=== PATIENT | female | born 1955 | race African-American/Black ===

== ENCOUNTER 2025-04-20 10:04 | Outpatient (REF) | payer MEDICAID, SELFPAY ==
--- OUTSIDE RECORDS SUMMARY | 2025-04-20 09:00 | XMS_ITS | Encounter Summary ---
Author Organization [facility] Address [address] [place] [address] Care Team Providers Care Call Taker Name Role Phone Zaynab Edmondson DO Primary Care Provider Reason for Referral * Imaging (Routine) - Authorized Specialty Diagnoses / Procedures Referred By Belinda padilla Referred To Contact Radiology Diagnoses Postmenopausal Procedures BD DEXA Axial Zaynab Edmondson DO [address] [place] [address] Phone: tel: fax: [address] Phone: tel: fax: Referral ID Status Reason Start Date Expiration Date V isits Requested Visits Authorized [id number] Authorized 04/20/2025 04/20/2026 1 1 * Imaging (Routine) - Authorized Specialty Diagnoses / Procedures Referred By Belinda padilla Referred To Contact Radiology Diagnoses Breast cancer screening by mammogram Procedures BI Mammogram Screening Tomosynthesis Bilateral Zaynab Edmondson DO [address] [place] [address] Phone: tel: fax: [address] Phone: tel: fax: Referral ID Status Reason Start Date Expiration Date V isits Requested Visits Authorized [id number] Authorized 04/20/2025 04/20/2026 1 1 * Cardiology (Routine) - Closed Specialty Diagnoses / Procedures Referred By Contrach t Referred To Contact Diagnoses Type 2 diabetes mellitus without complication, without long-term current use of insulin (CMS/HCC) Essential hypertension Procedures ECG 12 lead Zaynab Edmondson DO [address] [place] [address] Phone: tel: fax: Referral ID Status Reason Start Date Expiration Date Visits Re quested Visits Authorized [id number] Closed 04/20/2025 04/20/2026 1 1 Encounter Details Date Type Department Care Team (Late st Contact Info) Description 04/20/2025 9:00 AM EDT Office Visit [facility] MEDICINE [address] [place] [address] Zaynab Edmondson DO [address] [place], [place] [phone] Routine history and physical examination of adult (Primary Dx); Type 2 diabetes mellitus without complication, without long-term current use of insulin (CMS/HCC); Essential hypertension; Other hyperlipidemia; History of CVA (cerebrovascular accident); BMI 31.0-31.9,adult; Dietary counseling; Exercise counseling; Breast cancer screening by mammogram; Postmenopausal; Screening for colon cancer Social History Tobacco Use Types Packs/Day Years Used Date Smoking Tobacco: Never Passive Smoke Exposure: Never Smokeless Tobacco: Never Tobacco Cessation:Counseling Given: Not Answered Alcohol Use Standard Drinks/Week Comments Never 0 (1 standard drink = 0.6 oz pur e alcohol) Depression Answer Date Recorded Patient Health Questionnaire-9 Score 1 04/20/2025 Patient Health Questionnaire-9 Score 1 04/20/2025 Last PHQ-9: Questionnaire Data Not on file 0 04/20/2025 Housing Stability Answer Date Recorded What is your housing situation today? I have arturo girard 04/12/[address] you li ve. Do you have problems with any of the following? None of the above 04/12/2025 Food Insecurity Answer Date Recorded Within the past 12 months, y ou worried that your food would run out before you got money to buy more: Never True 04/12/2025 Within the past 12 months,th e food you bought just didn't last and you didn't have enough money to get more: Never True Transportation Answer Date Recorded In the past 12 months, has l ack of transportation kept you from medical appts, meetings, work or from getting things needed for daily living? No 04/12/2025 Utilities Answer Date Recorded In the past 12 months, has t he [employer], gas, oil or water company threatened to shut off services in your home? No 04/12/2025 Depression Answer Date Recorded Patient Health Questionnaire-2 Score 0 04/20/2025 Internet Access Answer Date Recorded Internet Access Q1 Yes 04/12/2025 Internet Access Q2 Not on file 04/12/2025 Comments Unknown Sex and Gender Information Value Date Recorded Sex Assigned at Female 02/24/2025 10:20 AM EDT Legal Sex Female 10:17 AM EDT Gender Identity Female 02/24/2025 10:20 AM EDT Sexual Orientation Straight 02/24/2025 10 :20 AM EDT documented as of this encounter Last Filed Vital Signs Vital Sign Reading Time Taken Comments Blood Pressure 168/78 04/20/2025 9:52 AM EDT Pulse 76 04/20/2025 9:11 AM EDT Temperature 36.6 C (97.8 F) 04/20/2025 9:11 AM EDT Respiratory Rate 19 04/20/2025 9:11 AM EDT Oxygen Saturation - - Inhaled Oxygen Concentration - - Weight 80.1 kg (176 lb 8 oz) 04/20/2025 9:11 AM EDT Height 158.5 cm (5' 2.4 ) 04/20/2025 9:11 AM EDT Body Mass Index 31.87 04/20/2025 9:11 AM EDT documented in this encounter Functional Status * Over the past 2 weeks, how often have you been bothered by any of the following problems? Question Answer Date of Assessment Author Patient Health Questionnaire-2 Score 0 03/29 9:56 AM EDT Radha Gill MA * Little interest or pleasure in doing things Answer Date of Assessment Author Not at all 04/20/2025 9:56 AM EDT Jocelyn Gill MA * Feeling down, depressed, or hopeless Answer Date of Assessment Author Not at all 04/20/2025 9:56 AM EDT Jocelyn Gill MA * Trouble falling or staying asleep, or sleeping too much Answer Date of Assessment Author Not at all 04/20/2025 9:56 AM EDT Jocelyn Gill MA * Feeling tired or having little energy Answer Date of Assessment Author Not at all 04/20/2025 9:56 AM EDT Jocelyn Gill MA * Poor appetite or overeating Answer Date of Assessment Author Not at all 04/20/2025 9:56 AM EDT Jocelyn Gill MA * Feeling bad about yourself - or that you are a failure or have let yourself or your family down Answer Date of Assessment Author Not at all 04/20/2025 9:56 AM EDT Jocelyn Gill MA * Trouble concentrating on things, such as reading the newspaper or watching television Answer Date of Assessment Author Several days 04/20/2025 9:56 AM EDT Jocelyn Gill MA * Moving or speaking so slowly that other people could have noticed? Or the opposite - being so fidgety or restless that you have been moving around a lot more than usual. Answer Date of Assessment Author Not at all 04/20/2025 9:56 AM EDT Jocelyn Gill MA * Thoughts that you would be better off or hurting yourself in some way Answer Date of Assessment Author Not at all 04/20/2025 9:56 AM EDT Jocelyn Gill MA * Patient Health Questionnaire-9 Score Answer Date of Assessment Author 1 04/20/2025 9:56 AM EDT Jocelyn Gill MA * How difficult have these problems made it for you to do your work, take care of things at home, or get along with other people? Answer Date of Assessment Author Not difficult at all 04/20/2025 9:56 AM EDT Radha Gill MA * Over the last 2 weeks, how often have you been bothered by any of the following problems? Question Answer Date of Assessment Author Feeling nervous, anxious, or on edge 0 03/29 9:57 AM EDT Radha Gill MA Not being able to stop or co ntrol worrying 0 04/20/2025 9:57 AM EDT Radha Gill MA Worrying too much about diff erent things 1 04/20/2025 9:57 AM EDT Radha Gill MA Trouble relaxing 0 04/20/2025 9:57 AM EDT Radha Christine MA Being so restless that it is hard to sit still 0 04/20/2025 9:57 AM EDT Radha Gill MA Becoming easily annoyed or irritable 3 03/29 9:57 AM EDT Radha Gill MA Feeling afraid as if somethi ng awful might happen 0 04/20/2025 9:57 AM EDT Radha Gill MA RO-7 Total Score 4 04/20/2025 9:57 AM EDT Radha Gill MA documented as of this encounter Progress Notes * Zaynab Edmondson, - 04/20/2025 9:00 AM EDT HIEU Crisostomo Janelle Byrne is a 69 y.o. female who presents for New Pt Visit to establish carewith new PCP. HPI She has not taken her BP meds this morning. She forgot before she left the house. She says that she checks her BP every morning, readings usually 140s/60-70s, today 140/60. She checks her sugars every morning, fastings 160s-220s She thought that glipizide was only once a day and she's only taking the glipizide with breakfast. She has appointment with optho in May. She is scheduled for appointment with speech therapy on of next . She had a mammo and pap last year in [place] and says that everything was good. She doesn't have copy of the results. She says that her pap smears have always been good. She has never had a colonoscopy and doesn't want one. She thinks that she might have copy of vaccines given in [place] at home. She lives with her and 4 dtrs and granddtr. She and her have been together > 30 years, 28 years. 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 She has never smoked cigarettes. No alcohol. No drug use. Review of Systems Constitutional: Negative for activity change, appetite change, chills, fever and unexpected weight change. Eyes: Negative for visual disturbance. Respiratory: Negative for cough and shortness of breath. Cardiovascular: Negative for chest pain, palpitations and leg swelling. Gastrointestinal: Negative for abdominal pain, diarrhea, nausea and vomiting. Neurological: Negative for dizziness, weakness and headaches. Patient Active Problem List Diagnosis Type 2 diabetes mellitus (CMS/HCC) Essential hypertension Hyperlipidemia History of CVA (cerebrovascular accident) No Known Allergies History reviewed. No pertinent past medical history. Past Surgical History: Procedure Laterality Date TUBAL LIGATION Family History Problem Relation Name Age of Onset Cancer Mother Prostate cancer Father Diabetes Father Hypertension Father Diabetes Sister Stroke Sister Thyroid disease Daughter OBJECTIVE Visit Vitals BP (!) 168/78 (BP Location: Left arm, Patient Position: Sitting, BP Cuff Size: Large adult) Pulse 76 Temp 97.8 ??F (36.6 ??C) (Oral) Resp 19 Ht 5' 2.4 (1.585 m) Wt 176 lb 8 oz (80.1 kg) BMI 31.87 kg/m?? Smoking Status Never BSA 1.88 m?? Physical Exam Constitutional: General: She is not in acute distress. Appearance: Normal appearance. She is obese. HENT: Right Ear: Tympanic membrane, ear canal and external ear normal. Left Ear: Tympanic membrane, ear canal and external ear normal. Mouth/Throat: Pharynx: Oropharynx is clear. Eyes: Extraocular Movements: Extraocular movements intact. Conjunctiva/sclera: Conjunctivae normal. Pupils: Pupils are equal, round, and reactive to light. Cardiovascular: Rate and Rhythm: Normal rate and regular rhythm. Heart sounds: Normal heart sounds. No murmur heard. Pulmonary: Effort: Pulmonary effort is normal. Breath sounds: Normal breath sounds. No wheezing or rhonchi. Abdominal: General: Bowel sounds are normal. Palpations: Abdomen is soft. There is no mass. Tenderness: There is no abdominal tenderness. Musculoskeletal: General: Normal range of motion. Cervical back: Normal range of motion and neck supple. No tenderness. Lymphadenopathy: Cervical: No cervical adenopathy. Skin: Findings: No rash. Neurological: General: No focal deficit present. Mental Status: She is alert and oriented to person, place, and time. Cranial Nerves: No cranial nerve deficit. Motor: No weakness. Gait: Gait normal. Psychiatric: Mood and Affect: Mood normal. Office Visit on 04/20/2025 Component Date Value Ref Range Status Glucose Blood, POC 04/20/2025 258 (A) 60 - 200 mg/dL Final Random QC Media Lot # 04/20/2025 [id number] Final Lot# Expiration Date 04/20/2025 [id number] Final Hemoglobin A1C 04/20/2025 8.8 (A) 4.0 - 5.7 % Final QC Media Lot # 04/20/2025 [id number] Final Lot# Expiration Date 04/20/2025 [id number] Final Assessment/Plan Diagnoses and all orders for this visit: Routine history and physical examination of adult -she declines flu vaccine -she declines PCV 20 -she will bring vaccine record next visit for review -schedule pap next visit -referred for mammo -referred for DEXA -she declines colonoscopy, referred for Cologuard -STI/HIV screening Type 2 diabetes mellitus without complication, without long-term current use of insulin ([facility]) A1c not at goal -cont metformin BID -start glipizide BID with meals -she declines additional med mgmt at this time -encouraged fasting and PP BS monitoring -keep optho evaluation as scheduled -foot exam next visit - POCT Glucose - POCT Hgb A1c - ECG 12 lead Essential hypertension BP elevated with reported nml home BP readings, asymptomatic -cont losrtan and norvasc daily -advised keep BP log and bring to next visit for review, new BP cuff sent -check basic labs as not yet done -referred for EKG -optho as above -advised go to ED if severe MIRANDA, CP or vision changes - ECG 12 lead Other hyperlipidemia -cont crestor nightly -check lipids prior to next visit as not yet done History of CVA (cerebrovascular accident) -cont crestor and aspirin daily -d/w pt and dtrs importance of optimal BP and BS control -keep speech evaluation as scheduled BMI 31.0-31.9,adult Dietary counseling Exercise counseling -encouraged [id number] Breast cancer screening by mammogram - BI Mammogram Screening Tomosynthesis Bilateral; Future Postmenopausal - BD DEXA Axial; Future Screening for colon cancer - Cologuard?? colon cancer screening --Follow-up with me in 3 mos or sooner prn-- Current Outpatient Medications: Alcohol Swabs 70 % pads, Use to test blood sugar 2 times daily, Disp: 100 each, Rfl: 11 amLODIPine (Norvasc) 10 MG tablet, Take 1 tablet (10 mg) by mouth Once per day., Disp: 90 tablet, Rfl: 1 aspirin 81 MG EC tablet, Take 1 tablet (81 mg) by mouth Once per day., Disp: 90 tablet, Rfl: 1 Blood Glucose Monitoring Suppl (FreeStyle Nunnelly Lite) w/Device kit, Use to test blood sugar 2 times daily, Disp: 1 kit, Rfl: 0 FREESTYLE LITE test strip, Use to test blood sugar 2 times daily, Disp: 100 each, Rfl: 11 glipiZIDE (Glucotrol) 10 MG tablet, Take 1 tablet (10 mg) by mouth before breakfast and before evening meal., Disp: 180 tablet, Rfl: 1 Lancets misc, Use to test blood sugar 2 times daily, Disp: 100 each, Rfl: 11 losartan (Cozaar) 100 MG tablet, Take 1 tablet (100 mg) by mouth Once per day., Disp: 90 tablet, Rfl: 1 metFORMIN (Glucophage) 1000 MG tablet, Take 1 tablet (1,000 mg) by mouth with breakfast and with evening meal., Disp: 180 tablet, Rfl: 1 rosuvastatin (Crestor) 10 MG tablet, Take 1 tablet (10 mg) by mouth at bedtime., Disp: 90 tablet, Rfl: 1 Blood Pressure kit, 1 each 1 (one) time per week., Disp: 1 kit, Rfl: 0 documented in this encounter Plan of Treatment Upcoming Encounters Date Type Department Care Team (Late st Contact Info) Description 06/20/2025 9:00 AM EST Office Visit [facility] OPTOMETRY [address] [place], [place] [phone] Makayla Felton, OD [address] [place] [address] Scheduled Orders Name Type Priority Associated Diagnoses Orde r Schedule ECG 12 lead ECG Routine Type 2 diabetes mellitus without complication, without long-term current use of insulin ([facility]) Essential hypertension Ordered: 04/20/2025 BI Mammogram Screening Tomosynthesis Bilateral Imaging Routine Breast cancer screening by mammogram Expected: 04/20/2025, Expires: 06/20/2026 Cologuard colon cancer screening Lab Routine Screening for colon cancer Ordered: 04/20/2025 BD DEXA Axial Imaging Routine Postmenopausal Expected: 04/20/2025, Expires: 04/20/2026 documented as of this encounter Procedures Procedure Name Priority Date/Time Associated Diagnosis Comments POCT GLYCATED HEMOGLOBIN, TOTAL Routine 04/20/2025 9:17 AM EDT Type 2 diabetes mellitus without complication, without long-term current use of insulin ([facility]) POCT GLUCOSE Routine 04/20/2025 9:16 AM EDT Type 2 diabetes mellitus without complication, without long-term current use of insulin ([facility]) documented in this encounter Results * (ABNORMAL) POCT Hgb A1c (04/20/2025 9:17 AM EDT) Hemoglobin A1C 8.8(A) 4.0 - 5.7 % QC Media Lot # [id number] Lot# Expiration Date [id number] Blood 04/20/2025 9:17 AM EDT Zaynab Edmondson DO POINT OF CARE TEST ENTER/NATALI T ORDERABLES Final Result * (ABNORMAL) POCT Glucose (04/20/2025 9:16 AM EDT) Glucose Blood, POC 258(A) 60 - 200 mg/dL Comment:Random QC Media Lot # [id number] Lot# Expiration Date ,[id number] Blood Capillary blood specimen / Unknown 04/20/2025 9:16 AM EDT Zaynab Edmondson DO POINT OF CARE TEST ENTER/NATALI T ORDERABLES Final Result documented in this encounter Visit Diagnoses Diagnosis Routine history and physical examination of adult- Primary Type 2 diabetes mellitus without complication, without long-term current use of insulin (CMS/HCC) Essential hypertension Unspecified essential hypertension Other hyperlipidemia History of CVA (cerebrovascular accident) Transient ischemic attack (TIA), and cerebral infarction without residual deficits BMI 31.0-31.9,adult Dietary counseling Dietary surveillance and counseling Exercise counseling Breast cancer screening by mammogram Postmenopausal Asymptomatic postmenopausal status (age-related) (natural) Screening for colon cancer Special screening for malignant neoplasms, colon documented in this encounter Additional Health Concerns Assessment Noted Time PHQ-9 Depression Total Score: 1 04/20/20 25 9:56 AM EDT documented as of this encounter Care Teams Call Taker Relationship Specialty Start Date End Date Zaynab Edmondson DO [address] [place] [id number] PCP - General Family Medicine 04/20/25 documented as of this encounter
[2025-04-20 11:46] LABS: Hematocrit 41.8 % (37.0-47.0); Hemoglobin 14.1 g/dl (12.0-16.0); Mean Corpuscular HGB Conc 33.7 g/dl (31.0-35.0); Mean Corpuscular Hemoglobin 28.5 pg (27.0-33.0); Mean Corpuscular Volume 84.6 fL (80.0-98.0); NRBC Abs Auto 0.000 X10*3/uL (0.0-0.012); NRBC Pct Auto 0.0 /100WBC (0.0-0.2); Platelet Count 219 X10*3/uL (160-400); Red Blood Count 4.94 X10*6/uL (4.20-5.50); White Blood Count 5.6 X10*3/uL (4.8-10.8)
--- OUTSIDE RECORDS SUMMARY | 2025-04-20 12:20 | XMS_ITS | Encounter Summary ---
Author Organization [email or web address] Address [address] [place] [address] Care Team Providers Care Data Entry Machine Operator Name Role Phone Unavailable Primary Care Provider Unavailabl e Reason for Visit * Reason Onset Date Comments Chart Prep 04/19/2025 Encounter Details Date Type Department Care Team (Late st Contact Info) Description 04/19/2025 Telephone [facility] MEDICINE [address] [place], [place] [phone] Zaynab Edmondson DO [address] [place], [place] [phone] Chart Prep Social History Tobacco Use Types Packs/Day Years Used Date Smoking Tobacco: Never Smokeless Tobacco: Never Depression Answer Date Recorded Patient Health Questionnaire-9 [...] the past 12 months, has t he electric, gas, oil or water company threatened to [...] AM EDT documented as of this encounter Miscellaneous Notes * Telephone Encounter - Lauren Orosco MA - 04/19/2025 8:33 AM EDT Chart Prep Labs: not done Images: not applicable Referrals: [facility] Vision-06/20/25, pending appointment [facility] Speech Vaccines due: Covid, Flu, PCV20, Tdap, and Zoster Screenings: colonoscopy, mammogram, and foot exam Overdue care gaps: A1c, Glucose, SBIRT, PHQ-9, and RO-7 documented in this encounter Plan of Treatment Upcoming Encounters Date Type Department Care Team ([facility] st Contact Info) Description 06/20/2025 9:00 AM EST Office Visit [facility] OPTOMETRY [address] [place] [address] Makayla Felton, OD [address] [place] [address] documented as of this encounter Visit Diagnoses Not on filedocumented in this encounter
--- OUTSIDE RECORDS SUMMARY | 2025-04-20 12:20 | XMS_ITS | Clinical Summary ---
Author Organization [email or web address] Address [address] [place] [address] Care Team Providers Care Staff Development Educator Name Role Phone Tess Edmondsonnifer Primary Care Provider [phone] Allergies No known active allergies Medications FREESTYLE LITE test strip Use to test blood sugar 2 times daily 100 each 11 5 02/25/20 26 Active Lancets misc Use to test blood sugar 2 times daily 100 each 5 Active Alcohol Swabs 70 % pads Use to test blood sugar 2 times daily 100 each 11 5 Active Blood Glucose Monitoring Suppl (FreeStyle Manderson Lite) w/Device kit Use to test blood sugar 2 times daily 1 kit 5 Active losartan (Cozaar) 100 MG tablet Take 1 tablet (100 mg) by mouth Once per day. 90 tablet 1 5 02/25/20 26 Active amLODIPine (Norvasc) 10 MG tablet Take 1 tablet (10 mg) by mouth Once per day. 90 tablet 1 5 02/25/20 26 Active metFORMIN (Glucophage) 1000 MG tablet Take 1 tablet (1,000 mg) by mouth with breakfast and with evening meal. 180 tablet 1 5 02/25/20 26 Active glipiZIDE (Glucotrol) 10 MG tablet Take 1 tablet (10 mg) by mouth before breakfast and before evening meal. 180 tablet 1 5 02/25/20 26 Active rosuvastatin (Crestor) 10 MG tablet Take 1 tablet (10 mg) by mouth at bedtime. 90 tablet 1 5 02/25/20 26 Active aspirin 81 MG EC tablet Take 1 tablet (81 mg) by mouth Once per day. 90 tablet 1 5 02/25/20 26 Active Blood Pressure kit 1 each 1 (one) time per week. 1 kit 5 Active Active Problems Problem Noted Date Diagnosed Date BMI 31.0-31.9,adult 04/20/2025 Type 2 diabetes mellitus 02/24/2025 Essential hypertension 02/24/2025 Hyperlipidemia 02/24/2025 History of CVA (cerebrovascular accident) 2024 Encounters Date Type Department Care Team Description 04/20/2025 9:00 AM EDT Office Visit [facility] [address] [place] [id number] Zaynab Edmondson DO Routine history and physical examination of adult (Primary Dx); Type 2 diabetes mellitus without complication, without long-term current use of insulin (CMS/HCC); Essential hypertension; Other hyperlipidemia; History of CVA (cerebrovascular accident); BMI 31.0-31.9,adult; Dietary counseling; Exercise counseling; Breast cancer screening by mammogram; Postmenopausal; Screening for colon cancer 04/20/2025 Travel 04/19/2025 Telephone [facility] [address] [place] [phone] Zaynab Edmondson DO Chart Prep 04/12/2025 Patient Outreach [address] [address] Fanny Waggoner Pre-visit Planning ((Unable to reach for PVP screening, LVM) to be completed in office ) 02/24/2025 11:00 AM EDT Office Visit [facility] [address] [place] [phone] Zaynab Edmondson DO Type 2 diabetes mellitus without complication, without long-term current use of insulin (CMS/HCC) (Primary Dx); Essential hypertension; Other hyperlipidemia; History of CVA (cerebrovascular accident) 02/24/2025 Travel from Last 3 Months Family History Medical History Relation Name Comments Thyroid disease Daughter Diabetes Father Hypertension Father Prostate cancer Father Cancer Mother Diabetes Sister Stroke Sister Relation Name Status Comments Daughter Father Mother Sister Social History Tobacco Use Types Packs/Day Years [...] Orientation Straight 02/24/2025 10 :20 AM EDT Last Filed Vital Signs Vital Sign Reading Time Taken Comments Blood Pressure 168/78 04/20/2025 9:52 AM EDT Pulse 76 04/20/2025 9:11 AM EDT Temperature 36.6 C (97.8 F) 04/20/2025 9:11 AM EDT Respiratory Rate 19 04/20/2025 9:11 AM EDT Oxygen Saturation 100% 02/24/2025 10:40 AM EDT Inhaled Oxygen Concentration - - Weight 80.1 kg (176 lb 8 oz) 04/20/2025 9:11 AM EDT Height 158.5 cm (5' 2.4 ) 04/20/2025 9:11 AM EDT Body Mass Index 31.87 04/20/2025 9:11 AM EDT Plan of Treatment Upcoming Encounters Date Type Department Care Team (Late st Contact Info) Description 06/20/2025 9:00 AM EST Office Visit [facility] OPTOMETRY [address] [place] [address] Makayla Felton, OD [address] [place] [address] Health Maintenance Due Date Last Done Comments CT Colonography 1956 Colonoscopy 1956 Colorectal Cancer Screening 1956 FIT DNA/Cologuard 1956 FIT 1956 FOBT 1956 Lipid Panel 1956 Sigmoidoscopy 1956 Diabetes: Foot Exam 1966 Eye Exam 1966 Hepatitis C Screening 1974 DTaP/Tdap/Td Vaccines (1 - Tdap) 12/17/1975 Diabetes: Urine Protein Screening 12/17/1975 Pneumococcal Vaccine: 50+ Years (1 of 2 - PCV) 12/17/1975 Mammogram 1996 Zoster Vaccines (1 of 2) 2006 COVID-19 Vaccine (1 - 2023-2 5 season) 2025 Influenza Vaccine (#1) 2025 Diabetes: Hemoglobin A1C 07/20/2025 04/20/2025 SDOH Screening 04/12/2026 04/12/2025 Alcohol/Substance Use Screening 04/20/2026 04/20/2025 Depression Screening 04/20/2026 04/20/2025, 04/20/2025 Tobacco Screening 04/20/2026 04/20/2025 RSV Patients and Patients Aged 60 years or older (1 - 1-dose 75+ series) 12/17/2031 HIB Vaccines Aged Out No longer eligi ble based on patient's age to complete this topic HPV Vaccines Aged Out No longer eligi ble based on patient's age to complete this topic Hepatitis A Vaccines Aged Out No long er eligible based on patient's age to complete this topic Hepatitis B Vaccines Aged Out No long er eligible based on patient's age to complete this topic IPV Vaccines Aged Out No longer eligi ble based on patient's age to complete this topic Meningococcal B Vaccine Aged Out No l onger eligible based on patient's age to complete this topic Meningococcal Vaccine Aged Out No gopi cris eligible based on patient's age to complete this topic RSV under 20 months Aged Out No longe r eligible based on patient's age to complete this topic Rotavirus Vaccines Aged Out No longer eligible based on patient's age to complete this topic Procedures Procedure Name Priority Date/Time Associated Diagnosis Comments CBC Routine 04/20/2025 10:18 AM EDT Type 2 diabetes mellitus without complication, without long-term current use of insulin ([facility]) POCT GLYCATED HEMOGLOBIN, TOTAL Routine 04/20/2025 9:17 AM EDT Type 2 diabetes mellitus without complication, without long-term current use of insulin ([facility]) POCT GLUCOSE Routine 04/20/2025 9:16 AM EDT Type 2 diabetes mellitus without complication, without long-term current use of insulin ([facility]) from Last 3 Months Results * CBC (04/20/2025 10:18 AM EDT) White Blood Count 5.6 4.8 - 10.8 X10*3/uL [facility] Red Blood Count 4.94 4.20 - 5.50 X10*6/uL [facility] Hemoglobin 14.1 12.0 - 16.0 g/dl [facility] Hematocrit 41.8 37.0 - 47.0 % [facility] Mean Corpuscular Volume 84.6 80.0 - 98.0 fL [facility] Mean Corpuscular Hemoglobin 28.5 27.0 - 33.0 pg [facility] Mean Corpuscular HGB Conc 33.7 31.0 - 35.0 g/dl [facility] Red Cell Distribution Width 13.2 11.0 - 16.0 % [facility] Platelet Count 219 160 - 400 X10*3/uL [facility] Mean Platelet Volume 10.0 9.4 - 12.3 fL [facility] NRBC Pct Auto 0.0 0.0 - 0.2 /100WBC [facility] NRBC Abs Auto 0.000 0.0 - 0.012 X10*3/uL [facility] Blood Venous blood specimen / Unknown 04/20/2025 10:18 AM EDT 04/20/2025 11:21 AM EDT Zaynab Edmondson DO LAB BLOOD ORDERABLES Final R esult [facility] [address] [place] [address] [phone] * (ABNORMAL) POCT Hgb A1c (04/20/2025 9:17 AM EDT) Hemoglobin A1C 8.8(A) 4.0 - 5.7 % QC Media Lot # [id number] Lot# Expiration Date ,[id number] Blood 04/20/2025 9:17 AM EDT Zaynab Edmondson DO POINT OF CARE TEST ENTER/NATALI T ORDERABLES Final Result * (ABNORMAL) POCT Glucose (04/20/2025 9:16 AM EDT) Glucose Blood, POC 258(A) 60 - 200 mg/dL Comment:Random QC Media Lot # [id number] Lot# Expiration Date [id number] Blood Capillary blood specimen / Unknown 04/20/2025 9:16 AM EDT Zaynab Edmondson DO POINT OF CARE TEST ENTER/NATALI T ORDERABLES Final Result from Last 3 Months Insurance [facility] Care Teams Staff Development Educator Relationship Specialty Start Date End Date Zaynab Edmondson DO [address] [place] [address] PCP - General Family Medicine 04/20/25
--- OUTSIDE RECORDS SUMMARY | 2025-04-20 12:20 | XMS_ITS | Encounter Summary ---
Author Organization [employer] Address [address] [place] [address] Care Team Providers Care Eye Specialist Name Role Phone SandyZaynab heredia Primary Care Provider Encounter Details Date Type Department Care Team (Latest Contact Info) Description 04/20/2025 Travel Social History Tobacco Use Types Packs/Day Years Used Date Smoking Tobacco: Never Passive Smoke Exposure: Never Smokeless Tobacco: Never Alcohol Use Standard Drinks/Week Comments Never 0 [...] AM EDT documented as of this encounter Functional Status * Over the [...] Author Not at all 04/20/2025 9:56 AM LOT Jocelyn Gill MA * Patient Health Questionnaire-9 [...] RO-7 Total Score 4 04/20/2025 9:57 AM LOT Radha Gill MA documented as of this encounter Plan of Treatment Upcoming Encounters Date Type Department Care Team (Late st Contact Info) Description 06/20/2025 9:00 AM EST Office Visit [facility] OPTOMETRY [address] [place] [address] Makayla Felton, OD [address] [place] [address] documented as of this encounter Visit Diagnoses Not on filedocumented in this encounter Additional Health Concerns Assessment Noted Time PHQ-9 Depression Total Score: 1 04/20/20 9:56 AM EDT documented as of this encounter Care Teams Eye Specialist Relationship Specialty Start Date End Date Zaynab Edmondson DO [address] [place] [address] PCP - General Family Medicine 04/20/25 documented as of this encounter
[2025-04-20 12:28] LABS: Alanine Aminotransferase 19 U/L (0-31); Albumin Level 4.6 g/dL (3.5-5.0); Alkaline Phosphatase 76 U/L (39-117); Anion Gap 14 (12-20); Aspartate Amino Transferase 27 U/L (5-31); Blood Urea Nitrogen 12 mg/dL (9-16); Calcium 9.9 mg/dL (8.4-10.2); Carbon Dioxide 28 mmol/L (22-29); Chloride 102 mmol/L (96-108); Cholesterol 183 mg/dL (<200); Estimated Glomerular Filt Rate > 60; Free T4 (Free Thyroxine) 0.80 ng/dL (0.71-1.85); HDL Cholesterol 66 mg/dL (>40); Potassium 4.6 mmol/L (3.3-5.1); Sodium 139 mmol/L (135-145); Thyroid Stimulating Hormone 6.88 uIU/mL (0.32-4.0); Total Protein 7.8 g/dL (6.5-8.0); Triglycerides 108 mg/dL (<150)
[2025-04-20 13:13] LABS: Microalbum/Creatinine Ratio Ur 76.1 ug/mg cr (<30)
[2025-04-21 04:16] LABS: HBS Num1 > 1000.00 mIU/mL (0-7.99); HBc Num1 2.11 S/CO (0.00-0.79); HBsAGNum1 0.29 S/CO (0.00-0.99); HIV Num 1 0.04 S/CO (0.00-0.99); Hepatitis B Surface Antigen Negative (Negative); ~HepC Num1 0.11 S/CO (0.00-0.79); ~Hepatitis B Surface Antibody REACTIVE (Nonreactive); ~Hepatitis C Antibody Nonreactive (Nonreactive)
[2025-04-21 04:59] LABS: HBc Num2 1.95 S/CO; HBc Num3 1.98 S/CO
[2025-04-22 08:44] LABS: ~Hepatitis A Antibody IgG 8.95 S/CO (0.00-0.99)
[2025-04-22 22:33] LABS: TS Negative Control Passed; TS Panel A 0; TS Panel B 0; TS Positive Control Passed; TSpotTB Negative (Negative)
== END 2025-04-20 10:05 | disposition home or self-care (01) ==
LOC: HO.HHCL 10:04
PROVIDERS: PCP Family Medicine; Visit Provider Family Medicine
DX: Z11.4 Encounter for screening for human immunodeficiency virus [HIV] (principal); Z11.59 Encounter for screening for other viral diseases; Z11.1 Encounter for screening for respiratory tuberculosis; E11.9 Type 2 diabetes mellitus without complications
CPT/HCPCS: 36415; 80048; 80061; 80076; 82043; 82306; 82570; 83036; 84439; 84443; 85027; 86481; 86592; 86704; 86706; 86708; 86803; 87340; 87389

== ENCOUNTER 2025-05-11 12:30 | Outpatient (RCR) | payer MEDICAID, SELFPAY ==
--- NOTE | 2025-05-12 12:13 | MHC.SP.ADU ---
Referring provider: Zaynab Edmondson DO Reason for Referral: Patient s/p CVA two years ago Type of Treatment: 41502 Evaluation Speech Sound Production WITH Language Date of Plan of Treatment: 05/11/25 Onset of Symptoms/Illness: 02/08/23 Date Treatment Started: 05/11/25 Medical Diagnosis: Z86.73 History of CVA (cerebrovascular accident) Primary Speech Language Diagnosis: R47.01 Aphasia Secondary Speech Language Diagnosis: R47.1 Dysarthria History Andressa Byrne is a 69 year old female referred for a speech evaluation by her primary care provider, Zaynab Edmondson DO, from [facility]. She was accompanied to this evaluation, by her daughter and granddaughter. Andressa?s main concern is her slurred speech as a residual effect of ischemic stroke. She reports having a stroke in [place] in January of 2023. She was sent home from the hospital after 3 days and underwent ?physiotherapy? on her side due to left sided facial weakness. She tried to establish speech therapy services there, however, the waitlists were too long and she was never seen for an evaluation. She moved to the [facility] over one year ago. Andressa reports new onset word retrieval difficulty 3-4 months ago. She says she did not go to the hospital for a work up, but did go to her primary care provider, after which a referral for speech therapy was made. Patient says that she has a harder time getting her words out since then. She also reports the following concerns: difficulty reading/writing, maintaining topic of conversation, oral motor weakness, expressing thoughts, being understood by others, and fluent speech. Andressa denies any childhood history of speech, language, or hearing difficulties. She completed some high school, had no accommodations or special education. Andressa reports medical history of hypertension and diabetes. Andressa wears glasses, but denies using any other assistive devices. She is not currently employed and enjoys being involved at [employer]. Andressa is and lives in a private residence. Medical History: Stroke Assessment Speech Production: Aphasic: Nonfluent Dysarthric Garbled Slow Clinical Impression: Impaired Observations: Andressa?s speech was mildly slow in rate and moderately garbled. Andressa?s SMR?s and AMR?s were slow, with precise placement and production of /k/, but limited labial movement on the left side for /p/ and distortion of the /t/ sound. With oral neuromotor examination, Andressa displayed gross facial symmetry at rest and with labial retraction for smiling, however, there was evident left side droop and reduced labial ROM on the left side when patient spoke. She was able to puff her cheeks and maintain labial seal, however, some air escape noted from the lips when pressure was applied to the cheeks. Andressa was able to purse her lips for production of vowel ?oo? and retract her lips for production of ?ee.?She also sequenced these two oral movements when pressed for speed. Lingual range of motion (ROM) was deemed within functional limits, though weakness was noted with tongue protrusion into the left cheek against pressure. Strength and ROM of the jaw is deemed to be within functional limits. Note intact and symmetrical velar elevation with phonation. Patient has adequate dentition for mastication. Tests of Speech & Lang Adults: BDAE BNT Clinical Impression: Impaired Observations: Andressa completed the Mabie Naming Test (BNT) Standard Form. She was presented with line drawings, which she was instructed to name in a confrontation naming task. Andressa spontaneously named 29 out of 60 images. Andressa often groped for words, stating, ?Don?t say it?Just give me a minute? and ?I know what it is?What is it called?? She often used paraphasias, substituting with other similar words, for example, naming pelican as ?duck? and ?geese,? muzzle as ?collar,? latch as ?doorknob,? stilts as ?crutches,? and globe as ?atlas.? She was at times aware of the mislabeling and attempted to correct herself, but still struggled to find the right word. When the clinician described the meaning of the word (semantic cues i.e. ?This is something you use to lease picker salad? for target word ?tongs?), Andressa named an additional 4 items. She also benefitted from sentence completion cues (i.e. ?There was lava coming out of the?? for target word ?volcano?). She was not as responsive to sound cues (phonemic cues i.e. ?pre?.? for target word ?pretzel?) and letter cues (orthographic cues i.e. ?it starts with the letter O? for target word ?octopus?). She was able to identify the target word from a choice of 4 written words in most trials and even read it aloud correctly. Andressa named many common nouns, but exhibited difficulty naming less salient items, such as igloo, stilts, cactus, and harp. She at times named items using descriptive phrases (i.e. ?use for oil in a car? for ?funnel,? ?use to lease picker the ice too? for ?tongs,? ?musical? for ?accordion?). Based on these observations, Andressa presents with mild to moderate anomia, with difficulty retrieving less common words in the context of spontaneous conversation and with confrontational naming. Andressa was also administered the Auditory Comprehension and Oral Expression subtests of the Mabie Diagnostic Aphasia Examination. Her performance is summarized below: RECEPTIVE LANGUAGE: Andressa completed single-step commands, which were verbally presented to her, demonstrating basic word discrimination in most trials (i.e. ?Point to your shoulder? ?Point to the picture representing an ant?) (score 14/16). She identified body parts on herself and line images from an array of 4. She likewise completed multi-step and more complex commands without any difficulty in 3/3 trials. She correctly answered yes/no questions about ideational material in 3 out of 4 trials and about short stories read aloud for her in 7 out of 8 trials. Questions were presented in pairs (6 pairs), each pair consisting of a yes-item and a no-item. In order to gain 1 point, Andressa was to answer both questions correctly. She received a score of 4/6. Andressa denied experiencing any difficulty with her auditory comprehension. EXPRESSIVE LANGUAGE: Andressa generated the days of the week and counted to 21 without error, receiving a score of 4/4. She reported no difficulties with automatic speech tasks. Andressa repeated single words in 5 out of 5 trials and complete sentences in 2 out of 2 trials. She did not exhibit any difficulty with repetition. Andressa responded appropriately to responsive naming questions (i.e. ?What do you use to shave??) in 5 out of 5 trials. Items immediately named were scored as 2 points and items named after a short time delay (>5 sec) were scored as 1 point. Andressa named all 5 items immediately, receiving a score of 10/10. Andressa correctly named ?special categories,? which included letters, numbers, and colors in 11 out of 12 trials. She mislabeled the color green as ?purple.? In conversation and with picture description tasks, Andressa formulated complete sentences with correct usage of grammatical forms and varied sentence structures, though she did evidence word retrieval difficulty. 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 She is recommended outpatient speech therapy 1x weekly x 12 weeks to train strategies for improved speech intelligibility and word retrieval. Impact on Daily Function/Activity Limitations: Daily Activities: Mild Interpersonal Interactions: Mild Education: Employment: Community: Mild Recommendation for Speech Therapy: Outpatient Speech Therapy Frequency/Duration: 1x weekly x 12 weeks Date Range for Service Requested: Time to Reassess: 3 months Group Home Goals: 1.) Andressa will utilize a variety of word-finding strategies at the conversational level with minimal assistance in >80% opportunities presented to her. 2.) Andressa will participate in conversation at 80% intelligibility given minimal verbal cues to utilize clear speech strategies in order to communicate thoughts, feelings, and needs. 3.) Andressa will complete the Reading and Writing subtests of the Mabie Diagnostic Aphasia Examination- Third Edition Short Form (BDAE-3) to 100% completion. Short Term Goals: Goal # : 1.1. Andressa will complete sentences with an appropriate word at 80% accuracy given moderate verbal and written cues. 1.2. Andressa will provide 4+ members per given category in 80% of opportunities given moderate verbal and visual cues. Goal Status: New Goal Goal# : 1.3. Andressa will produce a minimum of 4 different features, when presented with a word using semantic feature analysis (SFA), given minimal verbal prompts, with 80% accuracy. 2.1. Andressa will produce sentences with 7 or more words by placing pauses in appropriate places in 80% of opportunities given moderate verbal and visual cues. Goal Status: New Goal Goal # : 2.2. Andressa will use at least two compensatory strategies (over articulation/slow rate/writing cox word/elongation of the vowel/increased loudness/phrasing) to improve speech intelligibility while engaging in semi-structured conversation in 80% of opportunities when provided with minimal verbal cues. 2.3. Andressa will overarticulate words with target sounds (consonant clusters, m, p, b, w, t, d, n, s) in 80% of opportunities when provided with minimal verbal cues. Goal Status: New Goal Recommended Referrals to be Discussed with Primary Care Provider: Neurology Hx CVA, worsened word finding ability 3-4 months ago Patient Education: Completed: Yes Patient/Caregiver Education: Described Results of Evaluation Patient expressed understanding of evaluation Family/Caregivers expressed understanding of results Patient requires further education on strategies Comments/Barriers to Learning: It was a pleasure meeting Andressa and her family. Please do not hesitate to contact [facility] if we can be of further assistance in her care. Assistant Director Of Plant Operations Clinican/Clinical Fellow: No Supervisory Statement: N/A Speech Language Pathologist: Gilda Pack M.A., CCC-MICA LAMINATING MACHINE FEEDER
== END 2025-05-24 13:11 | disposition still patient (30) ==
LOC: HO.SH 12:30
PROVIDERS: PCP Family Medicine; Visit Provider Family Medicine
DX: Z86.73 Personal history of transient ischemic attack (TIA), and cerebral infarction without residual deficits (principal)
CPT/HCPCS: 92523

== ENCOUNTER 2025-07-20 08:33 | Outpatient (REF) | payer MEDICAID, SELFPAY ==
--- NOTE | ~2025-07-20 | MM_ITS ---
EXAMINATION: MM SCREENING DIGITAL BREAST TOMOSYNTHESIS, BILATERAL CLINICAL INFORMATION: Screening. Asymptomatic. COMPARISON: Mammography: Baseline. TECHNIQUE: Digital breast mammography with tomosynthesis is performed in both the craniocaudal and mediolateral oblique views along with computer-aided detection (CAD). FINDINGS: There are scattered areas of fibroglandular density. There are no significant masses, abnormal calcifications, or other abnormalities. MM/MM tomosynthesis screening BI IMPRESSION: No mammographic evidence of malignancy. ASSESSMENT: BI-RADS Category 1: Negative RECOMMENDATION: Routine annual mammography screening. 1 year F/U This examination should not preclude the clinical evaluation of a suspicious palpable abnormality. This patient's information was entered into a reminder system with a target due date for their next mammogram. Electronically signed by: Destiney Barney DO 07/20/2025 03:41 PM MAN
--- NOTE | ~2025-07-20 | MM_ITS ---
EXAMINATION: DXA BONE DENSITY AXIAL HISTORY: Z78.0 TECHNIQUE: [email or web address] Dual energy absorptiometry (DEXA) of the lumbar spine, total left hip, and femoral neck was performed. COMPARISON: There are no prior studies for comparison. FINDINGS: The bone mineral density of the lumbar spine is 1.259 g/cm2, corresponding to a T-score of 0.5, and a Z-score of 1.1. This is indicative of normal bone mineral density. The bone mineral density of the left total hip is 1.164 g/cm2, corresponding to a T-score of 1.2, and a Z-score of 1.4. This is indicative of normal bone mineral density. The bone mineral density of the left femoral neck is 1.101 g/cm2, corresponding to a T-score of 0.5, and a Z-score of 0.9. This is indicative of normal bone mineral density. FRACTURE RISK: The FRAX index suggests a risk of major osteoporotic fracture of 2.8%, and of hip fracture 0.1%. MM/XR DEXA axial skeleton IMPRESSION: Based on bone mineral density, and according to World Health Organization (WHO) criteria, the diagnosis is consistent with normal bone mineral density. Statistically, 68% of repeat scans fall within 1 SD (+/- 0.010 g/cm2 for AP spine L1-L4) and 1 SD (+/- 0.012 g/cm2 for femur total) FRAX is a trademark of the [employer] [place] [facility] Metabolic [employer] Disease, a World Health Organization (WHO) Collaborating Center. Electronically signed by: Vipin Villasenor MD 07/20/2025 09:26 AM [facility]
--- OUTSIDE RECORDS SUMMARY | 2025-07-20 08:36 | XMS_ITS | Clinical Summary ---
Author Organization [employer] Address [address] [facility] [address] [place] [address] Care Team Providers Care Clinical Specialist Medical Device Name Role Phone JusZaynab willis Primary Care Provider Allergies No known active allergies Medications FREESTYLE LITE test strip Use to test blood sugar 2 times daily 100 each 11 5 02/25/20 26 Active Lancets misc Use to test blood sugar 2 times daily 100 each 5 Active Alcohol Swabs 70 % pads Use to test blood sugar 2 times daily 100 each 11 5 Active Blood Glucose Monitoring Suppl (FreeStyle [place] Lite) w/Device kit Use to test blood [...] evening meal. 180 tablet 1 5 02/25/20 Active rosuvastatin (Crestor) 10 MG tablet Take 1 tablet (10 mg) by mouth at bedtime. 90 tablet 1 5 02/25/20 26 Active aspirin 81 MG EC tablet Take 1 tablet (81 mg) by mouth Once per day. 90 tablet 1 5 02/25/20 26 Active Blood Pressure kit 1 each 1 (one) time per week. 1 kit 5 Active latanoprost (Xalatan) 0.005 % ophthalmic solutionIndicati ons:Primary open angle glaucoma of both eyes, unspecified glaucoma stage Administer 1 drop into both eyes at bedtime. 2.5 mL 5 06/20/2025 11:02 AM EST 5 06/20/20 26 Active Active Problems Problem Noted Date Diagnosed Date BMI 31.0-31.9,adult 04/20/2025 Type 2 diabetes mellitus 02/24/2025 Essential hypertension 02/24/2025 Hyperlipidemia 02/24/2025 History of CVA (cerebrovascular accident) 2024 Encounters Date Type Department Care Team Description 07/08/2025 11:30 AM EST Office Visit [facility] [address] [place] [address] Mica Feltonica, OD Primary open angle glaucoma of both eyes, unspecified glaucoma stage (Primary Dx); Combined forms of age-related cataract of both eyes; Dry eyes, bilateral 07/08/2025 Travel 06/20/2025 9:00 AM EST Office Visit [facility] [address] [place] [address] Mica Feltonica, OD 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, without long-term current use of insulin, macular edema presence unspecified (HCC) (Primary Dx); Primary open angle glaucoma of both eyes, unspecified glaucoma stage; Dry eyes, bilateral; Presbyopia 06/20/2025 Travel 06/13/2025 Travel 05/10/2025 Telephone [facility] [address] [place] [address] Zaynab Edmondson DO Results 05/10/2025 Telephone [facility] [address] [place] [address] Zaynab Edmondson DO Results 04/28/2025 Results Follow-Up [facility] [address] [place] [address] Zaynab Edmondson DO T4, Free 04/20/2025 9:00 AM EDT Office Visit [facility] [address] [place] [address] Zaynab Edmondson, DO Routine history and physical examination of adult (Primary Dx); Type 2 diabetes mellitus without complication, without long-term current use of insulin (CMS/HCC); Essential hypertension; Other hyperlipidemia; History of CVA (cerebrovascular accident); BMI 31.0-31.9,adult; Dietary counseling; Exercise counseling; Breast cancer screening by mammogram; Postmenopausal; Screening for colon cancer 04/20/2025 Travel from Last 3 Months Family History [...] Care Team (Late st Contact Info) Description 09/20/2025 3:30 PM EST Office Visit [facility] [address] [place] [address] Makayla Felton, OD [address] [place] [address] Health Maintenance Due Date Last Done Comments CT Colonography 1956 Colonoscopy 1956 FIT 1956 Sigmoidoscopy 1956 Diabetes: Foot Exam 1966 DTaP/Tdap/Td Vaccines (1 - Tdap) 12/17/1975 Pneumococcal Vaccine: 50+ Years (1 of 2 - PCV) 12/17/1975 Mammogram 1996 RSV Patients and Patients Aged 60 years or older (1 - Risk 50-74 years 1-dose series) 2006 Zoster Vaccines (1 of 2) 2006 COVID-19 Vaccine (1 - season) 2025 Influenza Vaccine (#1) 2025 Diabetes: Hemoglobin A1C 07/20/2025 04/20/2025, 03/29 SDOH Screening 04/12/2026 04/12/2025 Alcohol/Substance Use Screening 04/20/2026 04/20/2025 Depression Screening 04/20/2026 04/20/2025, 04/20/20 Diabetes: Urine Protein Screening 04/20/2026 04/20/2025 Lipid Panel 04/20/2026 04/20/2025 FOBT 05/19/2026 05/19/2025 Tobacco Screening 06/20/2026 06/20/2025 Eye Exam 07/08/2026 07/08/2025, 06/27, 07/08/2025, Additional history exists Colorectal Cancer Screening 05/19/2028 FIT DNA/Cologuard 05/19/2028 05/19/2025 Hepatitis C Screening Completed 04/20/2025 HIB Vaccines Aged Out No longer eligi [...] on patient's age to complete this topic Goals Goal Patient Goal Type Associated Problems Recent Progress Patient-Stated? Author Help patients manage their type 2 diabetes Care Plan Help patients manage their type 2 diabetes No Makayla Felton OD Weekly blood pressure task Care Plan Weekly blood pressure task No Makayla Felton OD Help patients manage their type 2 diabetes Care Plan Help patients manage their type 2 diabetes No Makayla Felton OD Patient has chronic kidney disease Care Plan Patient has chronic kidney disease No Makayla Felton OD Weekly blood pressure task Care Plan Weekly blood pressure task No Tarka, Makayla, OD Patient has chronic kidney disease Care Plan Patient has chronic kidney disease No TarMica perezica, OD Patient has diabetic eye disease Care Plan Patient has diabetic eye disease No TarMica perezica, OD Patient has diabetic eye disease Care Plan Patient has diabetic eye disease No TarMica perezica, OD Weekly blood pressure task Care Plan Weekly blood pressure task No Mica Feltonica, OD Weekly blood pressure task Care Plan Weekly blood pressure task No TarMica perezica, OD Patient has chronic kidney disease Care Plan Patient has chronic kidney disease No TarMica perezica, OD Patient has chronic kidney disease Care Plan Patient has chronic kidney disease No TarMica perezica, OD Procedures Procedure Name Priority Date/Time Associated Diagnosis Comments LAB COLOGUARD COLON CANCER SCREEN Routine 05/19/2025 6:00 AM EDT Screening for colon cancer AMB REFERRAL TO SPEECH THERAPY Routine 05/11/2025 History of CVA (cerebrovascular accident) T-SPOT(R).TB Routine 04/20/2025 10:18 AM EDT Type 2 diabetes mellitus without complication, without long-term current use of insulin (CMS/HCC) HEPATITIS B CORE AB TOTAL Routine 04/20/2025 10:18 AM EDT Type 2 diabetes mellitus without complication, without long-term current use of insulin (CMS/HCC) HEPATITIS A ANTIBODY, TOTAL Routine 04/20/2025 10:18 AM EDT Type 2 diabetes mellitus without complication, without long-term current use of insulin (CMS/HCC) HEPATITIS B SURFACE ANTIBODY, QUALITATIVE Routine 04/20/2025 10:18 AM EDT Type 2 diabetes mellitus without complication, without long-term current use of insulin (CMS/HCC) RPR (MONITOR) W/REFL TITER Routine 04/20/2025 10:18 AM EDT Type 2 diabetes mellitus without complication, without long-term current use of insulin (CMS/HCC) HEPATITIS C AB W/REFL TO HCV RNA, QN, PCR Routine 04/20/2025 10:18 AM EDT Type 2 diabetes mellitus without complication, without long-term current use of insulin (CMS/HCC) HIV 1/2 ANTIGEN/ANTIBODY, FOURTH GENERATION W/RFL Routine 04/20/2025 10:18 AM EDT Type 2 diabetes mellitus without complication, without long-term current use of insulin (CMS/HCC) HEPATITIS B SURFACE ANTIGEN, EIA Routine 04/20/2025 10:18 AM EDT Type 2 diabetes mellitus without complication, without long-term current use of insulin (CMS/HCC) ALBUMIN, RANDOM URINE W/CREATININE Routine 04/20/2025 10:18 AM EDT Type 2 diabetes mellitus without complication, without long-term current use of insulin (CMS/HCC) CBC Routine 04/20/2025 10:18 AM EDT Type 2 diabetes mellitus without complication, without long-term current use of insulin (CMS/HCC) BASIC METABOLIC PANEL Routine 04/20/2025 10:18 AM EDT Type 2 diabetes mellitus without complication, without long-term current use of insulin (CMS/HCC) HEMOGLOBIN A1C Routine 04/20/2025 10:18 AM EDT Type 2 diabetes mellitus without complication, without long-term current use of insulin (CMS/HCC) HEPATIC FUNCTION PANEL Routine 04/20/2025 10:18 AM EDT Type 2 diabetes mellitus without complication, without long-term current use of insulin (CMS/HCC) TSH Routine 04/20/2025 10:18 AM EDT Type 2 diabetes mellitus without complication, without long-term current use of insulin (CMS/HCC) LIPID PANEL, STANDARD Routine 04/20/2025 10:18 AM EDT Type 2 diabetes mellitus without complication, without long-term current use of insulin (CMS/HCC) VITAMIN D,25-OH,TOTAL,IA Routine 04/20/2025 10:18 AM EDT Type 2 diabetes mellitus without complication, without long-term current use of insulin (CMS/HCC) T4, FREE Routine 04/20/2025 10:18 AM EDT Type 2 diabetes mellitus without complication, without long-term current use of insulin (CMS/HCC) POCT GLYCATED HEMOGLOBIN, TOTAL Routine 04/20/2025 9:17 AM EDT Type 2 diabetes mellitus without complication, without long-term current use of insulin (CMS/HCC) POCT GLUCOSE (CPT-12130) Routine 04/20/2025 9:16 AM EDT Type 2 diabetes mellitus without complication, without long-term current use of insulin (CMS/HCC) from Last 3 Months Results * Cologuard?? colon cancer screening (05/19/2025 6:00 AM EDT) [facility] Cologuard Result Negative Negative 05/24/20 1:42 PM EDT [facility] (CLIA #:[id number]) Comment: The Cologuard (TM) test was performed on this specimen. NEGATIVE TEST RESULT. A negative Cologuard result indicates a low likelihood that a colorectal cancer (CRC) or advanced adenoma (adenomatous polyps with more advanced pre-malignant features) is present. The chance that a person with a negative Cologuard test has a colorectal cancer is less than 1 in 1500 (negative predictive value >99.9%) or has an advanced adenoma is less than 5.3% (negative predictive value 94.7%). These data are based on a prospective cross-sectional study of 10,000 individuals at average risk for colorectal cancer who were screened with both Cologuard and colonoscopy. (Brady Yu al, N Engl J Med 2014;370(14):1286- 1297) The normal value (reference range) for this assay is negative. COLOGUARD RE-SCREENING RECOMMENDATION: Periodic colorectal cancer screening is an important part of preventive healthcare for asymptomatic individuals at average risk for colorectal cancer. Following a negative Cologuard result, the [place] [employer] and U.S. Multi-Society Task Force screening guidelines recommend a Cologuard re-screening interval of 3 years. References: [place] [employer] Guideline for Colorectal Cancer Screening: https://www.cancer.org/cancer/qmkpk-tmwjdj-lockme/wbfhqwvay-fxercrxfi-ncnjtuw/ac s-rec ommendations.html.; Suman DK, Maxwell STARR, Corrine HERNANDEZ, Colorectal Cancer Screening: Recommendations for Physicians and Patients from the U.S. Multi-Society Task Force on Colorectal Cancer Screening , Am J Gastroenterology 2017; 112:4386-8672. TEST DESCRIPTION: Composite algorithmic analysis of stool DNA-biomarkers with hemoglobin immunoassay. Quantitative values of individual biomarkers are not reportable and are not associated with individual biomarker result reference ranges. Cologuard is intended for colorectal cancer screening of adults of either sex, 45 years or older, who are at average-risk for colorectal cancer (CRC). Cologuard has been approved for use by the U.S. FDA. The performance of Cologuard was established in a cross sectional study of average-risk adults aged 50-84. Cologuard performance in patients ages 45 to 49 years was estimated by sub-group analysis of near-age groups. Colonoscopies performed for a positive result may find as the most clinically significant lesion: colorectal cancer [4.0%], advanced adenoma (including sessile serrated polyps greater than or equal to 1cm diameter) [20%] or non- advanced adenoma [31%]; or no colorectal neoplasia [45%]. These estimates are derived from a prospective cross-sectional screening study of 10,000 individuals at average risk for colorectal cancer who were screened with both Cologuard and colonoscopy. (Brady Thurman et al, N Engl J Med 2014;370(14):4777-6324.) Cologuard may produce a false negative or false positive result (no colorectal cancer or precancerous polyp present at colonoscopy follow up). A negative Cologuard test result does not guarantee the absence of CRC or advanced adenoma (pre-cancer). The current Cologuard screening interval is every 3 years. ([place] [employer] and U.S. Multi-Society Task Force). Cologuard performance data in a 10,000 patient pivotal study using colonoscopy as the reference method can be accessed at the following location: www.[employer]/results. Additional description of the Cologuard test process, warnings and precautions can be found at www.cologuard.com. Stool specimen (specimen) 05/19/2025 6:00 AM EDT 05/20/2025 1:07 PM EDT Zaynab Edmondson DO LAB MOLECULAR DIAGNOSTICS OR DERABLES Final Result [facility] (CLIA #:[id number]) [address] [place] [address], * Referral to Speech Therapy (05/11/2025) Zaynab Edmondson DO OUTPATIENT REFERRAL ORDERABL ES Final Result * Vitamin D, 25-Hydroxy, Total, Immunoassay (04/20/2025 10:18 AM EDT) Vitamin D 25-OH Total 88.5 >30 ng/mL [facility] Comment: Health Based Reference Values*< 20 ng/mL Ezpqmkmlo09-54 ng/mL Insufficient> 30 ng/mL Sufficient*Darlene NEW. N Engl J Med. 2007;357:266-280There is no well-established upper level of normal vitamin Dlevels. Some laboratories use 50 ng/mL as an upper limit ofnormal. However, toxicity is patient-dependent and may occurat any level. Careful correlation with the patient'spresentation is necessary and, if there is concern forvitamin D toxicity, treatment should be consideredirrespective of the serum level.Care must be taken in interpreting Vitamin D results fromdifferent laboratories and methodologies. Published datademonstrated that results from patients undergoinghemodialysis may show a negative bias when tested withvarious automated 25-OH vitamin D assays when compared toLC-MS/MS.When testing samples from patients whose predominant form ofVitamin D is Vitamin D2, such as patients receiving VitaminD2 supplementation, results that are subtherapeutic shouldbe confirmed with another method such as LC-MS/MS. Blood Venous blood specimen / Unknown 04/20/2025 10:18 AM EDT 04/20/2025 11:21 AM EDT us Zaynab Edmondson DO LAB BLOOD ORDERABLES Final R esult [facility] [address] [place] [phone] * T-SPOT??.TB (04/20/2025 10:18 AM EDT) T Spot TB Negative Negative [facility] Comment:A negative test resu lt does not exclude the possibilityof exposure to or infection with Mycobacteriumtuberculosis (M. tuberculosis). Patients with recentexposure to TB infected individuals exhibiting anegative T-SPOT.TB result should be considered forretesting within 6 weeks or if other relevant clinicalsymptoms indicate. Results from T-SPOT.TB testing mustbe used in conjunction with each individual'sepidemiological history, current medical status,and results of other diagnostic evaluations.The T-SPOT.TB test is qualitative and results arereported as positive, borderline, or negative, giventhat the test controls perform as expected. In linewith the Centers for Disease Control and Prevention's2010 recommendation to report quantitative measurementsalongside the qualitative result, the laboratoryprovides spot counts for informational purposes only.The T-SPOT.TB test should not be interpreted as aquantitative test. TS PANEL A 0 [facility] TS PANEL B 0 [facility] Negative Control Passed [facility] Positive Control Passed [facility] Comment:For additional infor sonal, please refer tohttp://education.[employer]/faq/KPB418(This link is being provided for informational/educational purposes only.)REPORT COMMENT:REC'D AT [facility] TEST WAS PERFORMED AT:[employer] [id number] [place] [id number] LEE MD,PHD 04/20/2025 10:1 8 AM EDT 04/20/2025 11:21 AM EDT us Zaynab Edmondson DO LAB BLOOD ORDERABLES Final R esult Performing Organization Address [facility] Co de Phone Number [facility] [address] [place] [address] [phone] * (ABNORMAL) Albumin, Random Urine W/Creatinine (04/20/2025 10:18 AM EDT) Creatinine, Urine 63.03 mg/dL [facility] Microalbumin Urine 48.0 mg/L H [facility] Microalbum Creatinine Ratio Ur 76.1(H) <30 ug/mg cr [facility] Comment:Albumin/Creatinine R atio Reference Ranges: Normal: < 30 ug/mg creatinine Microalbuminuria: 30 - 300 ug/mg creatinineClinical Albuminuria: > 300 ug/mg creatinine Urine (Urine, Random) 04/20/2025 10:18 AM EDT 04/20/2025 11:43 AM EDT Zaynab Dibsiedavidmd iogyn LAB URINE ORDERABLES Final R esult Performing Organization Address [facility] Co de Phone Number [facility] [address] [place] [phone] * Hepatitis C Antibody with Reflex to HCV, RNA, Quantitative, Real-Time PCR (04/20/2025 10:18 AM EDT) Hepatitis C Antibody Nonreactive Nonreactive [facility] Comment:Antibodies to HCV no t detected; does not exclude early acuteHCV infection. Blood Venous blood specimen / Unknown 04/20/2025 10:18 AM EDT 04/20/2025 11:21 AM EDT [facility] iogyn LAB BLOOD ORDERABLES Final R esult Performing Organization Address [facility] Co de Phone Number [facility] [address] [place] [phone] * Hepatitis A Antibody, Total (04/20/2025 10:18 AM EDT) Hepatitis A Antibody IgG REACTIVE Nonreactive [facility] Comment:The presence of IgG anti-HAV implies past HAV infection(recent or distant) or vaccination against HAV. Blood Venous blood specimen / Unknown 04/20/2025 10:18 AM EDT 04/20/2025 11:21 AM EDT Zaynab Edmondson DO LAB BLOOD ORDERABLES Final R esult Performing Organization Address [facility] Co de Phone Number [facility] [address] [place] [phone] * Hepatitis B surface antigen, EIA (04/20/2025 10:18 AM EDT) Hepatitis B Surface Ag Negative Negative [facility] Blood Venous blood specimen / Unknown 04/20/2025 10:18 AM EDT 04/20/2025 11:21 AM EDT Zaynab Edmondson DO LAB BLOOD ORDERABLES Final R esult Performing Organization Address [facility] de Phone Number [facility] [address] [place] [phone] * Hepatitis B Core Antibody, Total (04/20/2025 10:18 AM EDT) Hepatitis B Core Antibody Reactive Nonreactive [facility] Comment:Presumptive evidence of anti-HBc. Blood Venous blood specimen / Unknown 04/20/2025 10:18 AM EDT 04/20/2025 11:21 AM EDT Zaynab Edmondson DO LAB BLOOD ORDERABLES Final R esult Performing Organization Address [facility] Co de Phone Number [facility] [address] [place] [phone] * RPR (Monitor) with Reflex to??Titer (04/20/2025 10:18 AM EDT) RPR (Monitor) w/Refl Titer NON-REACTI VE NON-REACT [facility] Comment:THIS TEST WAS PERFOR MED AT:[email or web address] [place] [id number] GILBERT MD Rapid Plasma Reagin Ab Titer TNP [facility] Blood Venous blood specimen / Unknown 04/20/2025 10:18 AM EDT 04/20/2025 11:21 AM EDT Zaynab Edmondson DO LAB BLOOD ORDERABLES Final R esult Performing Organization Address [facility]/ZIP Co de Phone Number [facility] [address] [place] [phone] * HIV-1/2 Antigen and Antibodies, Fourth Generation, with Reflexes (04/20/2025 10:18 AM EDT) Pathologist [facility] HIV AB/AG Nonreactive Nonreactive [facility] Comment:HIV-1 p24 Ag and/or HIV-1/HIV-2 Ab not detected.A test result that is nonreactive does not exclude thepossibility of exposure to or infection with HIV-1 and/orHIV-2. Nonreactive results in this assay for individualswith prior exposure to HIV-1 and/or HIV-2 may be due toantigen and antibody levels that are below the limit ofdetection of this assay.The [employer] HIV Ag/Ab Combo assay result andsupplemental assay results should be interpreted inconjunction with the patient's clinical presentation,history and other laboratory results. If the results areinconsistent with clinical evidence, additional testing issuggested to confirm the result. Blood Venous blood specimen / Unknown 04/20/2025 10:18 AM EDT 04/20/2025 11:21 AM EDT us Zaynab Edmondson DO LAB BLOOD ORDERABLES Final R esult Performing Organization Address City/[facility]/ZIP Co de Phone Number [facility] [address] [place] [phone] * Hepatitis B Surface Antibody, Qualitative (04/20/2025 10:18 AM EDT) [facility] ~Hepatitis B Surface Antibody REACTIVE Nonreactive [facility] Comment:REACTIVE: > 11.99 mI U/mL Blood Venous blood specimen / Unknown 04/20/2025 10:18 AM EDT 04/20/2025 11:21 AM EDT us Zaynab Edmondson DO LAB BLOOD ORDERABLES Final R esult [facility] [address] [place] [phone] * CBC (04/20/2025 10:18 AM EDT) [facility] White Blood Count 5.6 4.8 - 10.8 X10*3/uL [facility] Red Blood Count 4.94 4.20 - 5.50 X10*6/uL [facility] Hemoglobin 14.1 12.0 - 16.0 g/dl [facility] Hematocrit 41.8 37.0 - 47.0 % [facility] Mean Corpuscular Volume 84.6 80.0 - 98.0 fL [facility] Mean Corpuscular Hemoglobin 28.5 27.0 - 33.0 pg [facility] Mean Corpuscular HGB Conc 33.7 31.0 - 35.0 g/dl [facility] Red Cell Distribution Width 13.2 11.0 - 16.0 % [facility] Platelet Count 219 160 - 400 X10*3/uL [facility] Mean Platelet Volume 10.0 9.4 - 12.3 fL [facility] NRBC Pct Auto 0.0 0.0 - 0.2 /100WBC [facility] NRBC Abs Auto 0.000 0.0 - 0.012 X10*3/uL [facility] Blood Venous blood specimen / Unknown 04/20/2025 10:18 AM EDT 04/20/2025 11:21 AM EDT Zaynab Delgadoyan LAB BLOOD ORDERABLES Final R esult Performing Organization Address City/[facility]/ZIP Co de Phone Number [facility] [address] [place] [phone] * (ABNORMAL) TSH (04/20/2025 10:18 AM EDT) Thyroid Stimulating Hormone 6.88(H) 0.32 - 4.0 uIU/mL [facility] Comment:Note: A sustained TS H level above 2.5 uIU/mL may warrant further investigation. TSH 3rd Generation ([facility]) Blood Venous blood specimen / Unknown 04/20/2025 10:18 AM EDT 04/20/2025 11:21 AM EDT Zaynab Delvis LAB BLOOD ORDERABLES Final R esult Performing Organization Address [facility] Co de Phone Number [facility] [address] [place] [phone] * T4, Free (04/20/2025 10:18 AM EDT) Free T4 (Free Thyroxine) 0.80 0.71 - 1.85 ng/dL [facility] Blood Venous blood specimen / Unknown 04/20/2025 10:18 AM EDT 04/20/2025 11:21 AM EDT Zaynab Delgadoyan DO LAB BLOOD ORDERABLES Final R esult Performing Organization Address City/[facility]/ZIP Co de Phone Number [facility] [address] [place] [phone] * (ABNORMAL) Hemoglobin A1c (04/20/2025 10:18 AM EDT) Hemoglobin A1c 9.3(H) <6.0 % [facility] Comment:Hemoglobin A1C Refer ence Range Adults: 4.8 - 6.0 % Non diabetic: < 6.0 % Goal: < 7.0 %Additional Action Suggested: > 8.0 %Note: Hemoglobin A1c results are invalid for patients with abnormal amounts of HbF. Blood transfusions may impact the HbA1c concentration in the patient sample. Estimated Average Glucose 220 mg/dL [facility] Comment:eAG = Estimated ave rage glucose which is %A1C expressed asaverage glucose, using the formula of the [id number] Glucose study (ADAG), Diabetes Care, Vol.31,#8,Feb. 2007 Blood Venous blood specimen / Unknown 04/20/2025 10:18 AM EDT 04/20/2025 11:21 AM EDT Zaynab Edmondson DO LAB BLOOD ORDERABLES Final R esult Performing Organization Address [facility] Co de Phone Number [facility] [address] [place] [phone] * Hepatic Function Panel (04/20/2025 10:18 AM EDT) Bilirubin, Total 0.4 0.0 - 1.0 mg/dL [facility] Bilirubin, Direct 0.2 0.0 - 0.5 mg/dL [facility] Aspartate Amino Transferase 27 5 - 31 U/L [facility] Alanine Aminotransferase 19 0 - 31 U/L [facility] Total Protein 7.8 6.5 - 8.0 g/dL [facility] Albumin Level 4.6 3.5 - 5.0 g/dL [facility] Alkaline Phosphatase 76 39 - 117 U/L [facility] Blood Venous blood specimen / Unknown 04/20/2025 10:18 AM EDT 04/20/2025 11:21 AM EDT Zaynab Edmondson LAB BLOOD ORDERABLES Final R esult Performing Organization Address [facility] Co de Phone Number [facility] [address] [place] [phone] * Lipid Panel, Standard (04/20/2025 10:18 AM EDT) Triglycerides 108 <150 mg/dL [facility] Comment:Desirable Triglyceri de: less than 150 mg/dLBorderline High Triglyceride 150-199 mg/dLHigh Triglyceride: 200-499 mg/dLVery High Triglyceride: greater than or equal to 5OO mg/dL Cholesterol 183 <200 mg/dL [facility] Comment:Desirable Cholestero l: less than 200 mg/dLBorderline High Cholesterol: 200-239 mg/dLHigh Cholesterol: greater than 239 mg/dL LDL Cholesterol Calculated 96 <100 mg/dL [facility] Comment:Desirable LDL: less than 100 mg/dLNear Optimal/Above Optimal LDL: 110- 129 mg/dLBorderline High LDL: 130-159 mg/dLHigh LDL: 160-189 mg/dLVery High LDL: greater than or equal to 190 mg/dL HDL Cholesterol 66 >40 mg/dL [facility] Comment:Desirable HDL: great er than 40 mg/dL Note: This HDL assay may give artificially low results in patients with liver disease. Blood Venous blood specimen / Unknown 04/20/2025 10:18 AM EDT 04/20/2025 11:21 AM EDT us Zaynab Edmondson DO LAB BLOOD ORDERABLES Final R esult [facility] [address] [place] [phone] * (ABNORMAL) Basic Metabolic Panel (04/20/2025 10:18 AM EDT) Sodium 139 135 - 145 mmol/L [facility] Potassium 4.6 3.3 - 5.1 mmol/L [facility] Chloride 102 96 - 108 mmol/L [facility] Carbon Dioxide 28 22 - 29 mmol/L [facility] Anion Gap 14 12 - 20 [facility] Urea Nitrogen (BUN) 12 9 - 16 mg/dL [facility] Creatinine, Serum 0.71 0.5 - 1.4 mg/dL [facility] Estimated Glomerular Filt Rate >60 [facility] Comment:Chronic Kidney Disea se: Estimated GFR < 60 mL/min/[id number] Kidney Disease: Estimated GFR < 15 mL/min/1.73m2 Glucose 250(H) 60 - 115 mg/dL [facility] Calcium 9.9 8.4 - 10.2 mg/dL [facility] Blood Venous blood specimen / Unknown 04/20/2025 10:18 AM EDT 04/20/2025 11:21 AM EDT Zaynab Edmondson DO LAB BLOOD ORDERABLES Final R esult [facility] [address] [place] [phone] * (ABNORMAL) POCT Hgb A1c (04/20/2025 9:17 AM EDT) Hemoglobin A1C 8.8(A) 4.0 - 5.7 % QC Media Lot # [id number] Lot# Expiration Date , Blood 04/20/2025 9:17 AM EDT Zaynab Edmondson DO POINT OF CARE TEST ENTER/NATALI T ORDERABLES Final Result * (ABNORMAL) POCT Glucose (04/20/2025 9:16 AM EDT) Glucose Blood, POC 258(A) 60 - 200 mg/dL Comment:Random QC Media Lot # [id number] Lot# Expiration Date Blood Capillary blood specimen / Unknown 04/20/2025 9:16 AM EDT Zaynab Edmondson DO POINT OF CARE TEST ENTER/NATALI T ORDERABLES Final Result from Last 3 Months Additional Health Concerns Active Problems Noted Date Diagnosed Date Help patients manage their type 2 diabetes 06/20 Weekly blood pressure task 06/20/2025 Help patients manage their type 2 diabetes 06/20 Patient has chronic kidney disease 06/20/2025 Weekly blood pressure task 06/20/2025 Patient has chronic kidney disease 06/20/2025 Patient has diabetic eye disease 06/20/2025 Patient has diabetic eye disease 06/20/2025 Weekly blood pressure task 07/08/2025 Weekly blood pressure task 07/08/2025 Patient has chronic kidney disease 07/08/2025 Patient has chronic kidney disease 07/08/2025 Insurance [facility] STANDARD Care Teams Clinical Specialist Medical Device Relationship Specialty Start Date End Date Zaynab Edmondson DO [address] [place] [address] PCP - General Family Medicine 04/20/25
== END 2025-07-20 08:34 | disposition home or self-care (01) ==
LOC: HO.MAMMO 08:33
PROVIDERS: PCP Family Medicine; Visit Provider Family Medicine
DX: Z12.31 Encounter for screening mammogram for malignant neoplasm of breast (principal); Z13.820 Encounter for screening for osteoporosis; Z78.0 Asymptomatic menopausal state
CPT/HCPCS: 77063; 77067; 77080

== ENCOUNTER → 2025-07-20 08:45 | Outpatient (BNV) | payer MEDICAID, SELFPAY | PROVIDERS: PCP Family Medicine; Visit Provider Radiology Diagnostic Radiology | DX: E28.39 Other primary ovarian failure (principal); Z12.31 Encounter for screening mammogram for malignant neoplasm of breast | CPT/HCPCS: 77063; 77067; 77080 ==